=== PATIENT | female | born 1945 | race Caucasian/White ===

== ENCOUNTER 2017-06-30 08:46 | Day surgery (SDC) | payer MEDICARE ==
[~2017-06-30] VITALS: Ht 147.3 cm; Wt 88.2 kg
[~2017-06-30 08:46] MED LIST: ASPIR 8181 MG PO; ASPIRIN EC325 MG PO; BACTRIM DS 8001 TAB PO; CHEWABLE ASPIRI81 MG OR; CHEWABLE ASPIRI81 MG PO; CINNAMON500 MG PO; COUMADIN 5MG TAB5 MG PO; COUMADIN 7.5MG7.5 MG PO; DILTIAZEM180 MG PO; FISH OIL1000 MG PO; FLECAINIDE ACE100 MG PO; LISINOPRIL 20MG20 MG PO; LISINOPRIL/HCTZ1 TA3 PO; NEXIUM 24HR20 MG PO; NEXIUM40 MG PO; PANTOPRAZOLE SO40 M1 PO; POTASSIUM CHLO20 ME2 PO; PRAVACHOL40 MG PO; PROPAFENONE150 MG PO; RYTHMOL PO; VITAMIN D31000 IU PO; XANAX 0.5MG TA0.5 MG PO; XANAX0.5 MG PO; ZYRTEC ALLERGY10 MG PO
--- NOTE | 2017-06-30 11:11 | Operative Note ---
Colonoscopy (Kirsten) Procedure date: 06/30/17 Date of : 41 Procedure:Colonoscopy Colonoscopy Indications: Mrs. Gomez is a 71-year-old female who was recently found to have positive fecal Hemoccults. The patient is on Coumadin. She reports no rectal bleeding, hematochezia or melena. Her hemoglobin and hematocrit were normal at 15.7 and 46.8 (December 2015). The patient reports no abdominal pain, weight loss, change in her bowel habits. She does state that her half-brother had colon cancer in his early 80s. This is the patient's first colonoscopy. Performing Provider: Franki Curtis MD Referrring Provider: Sebastian Campos M.D. Sedation: MAC sedation Procedure: Prior to the procedure, a history and physical exam was performed, and patient medications and allergies were reviewed. The risks and benefits of the procedure and the sedation options and risks were discussed with the patient. All questions were answered and informed consent was obtained. Patient identification and proposed procedure were verified by the physician and the nurse. The patient was placed in a left lateral decubitus position. Throughout the procedure, the patient's blood pressure, pulse, and oxygen saturations were monitored continuously. Findings: On digital rectal examination there was normal rectal tone. There were no external hemorrhoids. The colonoscope was introduced through the anal canal to the rectum and advanced to the cecum. The ileocecal valve and appendiceal orifice were identified. The scope was advanced a short distance into the ileum which appeared grossly normal. The scope was then withdrawn into the colon. The cecum, ascending and transverse colon and mucosa were grossly normal. 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 There were scattered diverticuli throughout the descending and sigmoid colon (LEFT colon). The rectum itself was normal. Upon retroflexion within the rectum there were grade 1 internal hemorrhoids. Impressions: 1. Mild melanosis coli 2. Left-sided diverticulosis 3. Grade 1 internal hemorrhoids Recommendations: Based upon her family history (half-brother with colon cancer) I would recommend repeat screening/surveillance again in 5 years. I would encourage fiber supplementation on a long-term daily maintenance basis. Complications: None EBL (ml): 0 at 1110
[2017-06-30 12:31] VITALS: BP 148/65
== END 2017-06-30 12:02 | disposition home or self-care (01) ==
LOC: SDC 08:46
PROVIDERS: Internal Medicine Gastroenterology
PROC: 0DJD8ZZ Inspection of Lower Intestinal Tract, Via Natural or Artificial Opening Endoscopic (ICD-10-PCS; principal; 2017-06-30 10:00)
DX: R19.5 Other fecal abnormalities (principal); K57.30 Diverticulosis of large intestine without perforation or abscess without bleeding; K63.89 Other specified diseases of intestine; K64.0 First degree hemorrhoids; Z79.01 Long term (current) use of anticoagulants; Z80.0 Family history of malignant neoplasm of digestive organs; Z79.82 Long term (current) use of aspirin; Z79.899 Other long term (current) drug therapy; Z88.1 Allergy status to other antibiotic agents; Z91.041 Radiographic dye allergy status; Z88.8 Allergy status to other drugs, medicaments and biological substances; Z91.048 Other nonmedicinal substance allergy status